=== PATIENT | male | born 1985 ===

== ENCOUNTER → 2018-12-22 | Outpatient (CLI) | payer BC ==
[~2018-12-22] MED LIST: FLUT16SP19 NS; PANT40TA65 PO; PRED20TA6 PO
--- NOTE | 2018-12-22 10:21 | RADIOLOGY IMAGING REPORT ---
FACILITY: [facility] [place] PATIENT NAME: Jc Jordan : 1985 MR: [id number] V: [id number] EXAM DATE: ORDERING PHYSICIAN: DEVON CARDONA TECHNOLOGIST: Location: [facility] Patient: Jc Jordan : 1985 Visit/Account:[id number] Date of Sevice: 12/22/2018 Exam type: CHEST PA LAT History: Chronic cough after is suspected mold exposure x1 month Comparison: None. Findings: The lungs are free of acute effusions, infiltrates or edema. There is no evidence of a pneumothorax or pneumomediastinum The cardiac silhouette is normal in size. The trachea is in midline. IMPRESSION: 1. No acute cardiopulmonary process is seen Report Dictated By: Melissa Carrizales MD at 12/22/2018 10:11 AM Report E-Signed By: Melissa Carrizales MD at 12/22/2018 10:12 AM WSN:[email or web address]
[2018-12-22 10:35] LABS: PLATELET COUNT, AUTOMATED 267 K/uL (150-450)
== END ==
LOC: LAB 09:07
PROVIDERS: ATTEND Internal Medicine
DX: R05 Cough (principal); Z77.120 Contact with and (suspected) exposure to mold (toxic)
CPT/HCPCS: 36415; 71046; 82040; 82247; 82310; 82374; 82435; 82565; 82947; 84075; 84132; 84155; 84295; 84443; 84450; 84460; 84520; 85025